=== PATIENT | male | born 1995 ===

== ENCOUNTER 2018-10-12 15:32 | Emergency (ER) ==
[2018-10-12] MEDS ORDERED: DIPH/PERTUSS(ACELL)/TETANUS VAC/PF 0.5 ML SYR (>=10YO) IM ONE (15:58)
--- NOTE | 2018-10-12 16:01 | ER Document Report ---
ED Medical Screen (RME) - General Chief Complaint: Puncture Wound to Foot Stated Complaint: NAIL PUNTURE TO FOOT Time Seen by Provider: 10/12/18 15:57 Notes: 23-year-old male patient with puncture wound to the left plantar foot 2 hours ago. He was wearing tennis shoes with socks. I have greeted and performed a rapid initial assessment of this patient. A comprehensive ED assessment and evaluation of the patient, analysis of test results and completion of the medical decision making process will be conducted by additional ED providers. TRAVEL OUTSIDE OF THE [place] IN LAST 30 DAYS: No - Related Data Allergies/Adverse Reactions: No Known Allergies Allergy (Verified 10/12/18 15:35) Physical Exam - Vital signs Vitals: Temp Pulse Resp BP Pulse Ox 98.5 F 68 16 121/67 98 10/12/18 15:40 10/12/18 15:40 10/12/18 15:40 10/12/18 15:40 10/12/18 15:40 Course - Vital Signs Vital signs: Temp Pulse Resp BP Pulse Ox 98.5 F 68 16 121/67 98 10/12/18 15:40 10/12/18 15:40 10/12/18 15:40 10/12/18 15:40 10/12/18 15:40
== END 2018-10-12 17:28 | disposition left against medical advice (07) ==
LOC: ER 15:32
DX: Z53.21 Procedure and treatment not carried out due to patient leaving prior to being seen by health care provider (principal); S91.332A Puncture wound without foreign body, left foot, initial encounter; X58.XXXA Exposure to other specified factors, initial encounter
CPT/HCPCS: 90471; 90715; 99281